=== PATIENT | female | born 1950 | race Caucasian/White ===

== ENCOUNTER → 2020-07-28 | Outpatient (CLI) | payer MEDICARE | LOC: HEART CORB 08:40 | DX: R07.9 Chest pain, unspecified (principal); R06.00 Dyspnea, unspecified; I10 Essential (primary) hypertension; J44.9 Chronic obstructive pulmonary disease, unspecified; I07.9 Rheumatic tricuspid valve disease, unspecified; I07.1 Rheumatic tricuspid insufficiency; I27.20 Pulmonary hypertension, unspecified | CPT/HCPCS: 78452; 93306; A9502; J2785 ==

== ENCOUNTER 2021-11-23 23:23 | Inpatient (IN) | payer MEDICARE ==
[~2021-11-23] VITALS: Ht 165.1 cm; Wt 79.8 kg
[2021-11-24 00:32] LABS: HEMOGLOBIN 12.6 gm/dl (12.3-15.3); RED BLOOD COUNT 4.22 M/UL (4.00-5.10)
[2021-11-24 00:47] LABS: WHITE BLOOD COUNT 39.8 K/UL (4.5-11.0)
[2021-11-24 00:54] LABS: BUN/CREATININE RATIO 28 (0-10)
[2021-11-24 05:22] LABS: BUN/CREATININE RATIO 33 (0-10)
[2021-11-24 08:45] LABS: HEMOGLOBIN 12.3 gm/dl (12.3-15.3); RED BLOOD COUNT 4.14 M/UL (4.00-5.10)
[2021-11-24 08:53] LABS: WHITE BLOOD COUNT 47.6 K/UL (4.5-11.0)
[2021-11-24] MEDS ORDERED: PROAIR HFA8.5 GM INH (10:36)
[2021-11-24] MEDS ORDERED: ONDANSETRON HCL4 MG PO (10:36)
[2021-11-24] MEDS ORDERED: TRELEGY ELLIPT1 EAC1 INH (10:36)
[2021-11-24] MEDS ORDERED: ALBUTEROL2.5 MG/3 M INH (10:36)
[2021-11-24] MEDS ORDERED: BUPROPION HCL75 MG PO (10:37)
[2021-11-24] MEDS ORDERED: ALENDRONATE SOD70 MG PO (10:37)
[2021-11-24] MEDS ORDERED: METOPROLOL SUCC25 MG PO (10:37)
[2021-11-24] MEDS ORDERED: HYDROCHLOROTH12.5 MG PO (10:38)
[2021-11-24] MEDS ORDERED: THEO-24400 MG PO (10:38)
[2021-11-24] MEDS ORDERED: PREDNISONE2.5 MG PO (10:38)
[2021-11-24] MEDS ORDERED: PREVACID30 MG PO (10:50)
[2021-11-24] MEDS ORDERED: CETIRIZINE HCL10 MG PO (10:50)
[2021-11-24] MEDS ORDERED: MONTELUKAST SOD10 MG PO (10:51)
[2021-11-24] MEDS ORDERED: KLONOPIN TAB 00.5 MG PO (14:11)
[2021-11-24] MEDS ORDERED: VITAMIN B COMP1 EAC1 PO (14:12)
[2021-11-24 18:12] LABS: HEMOGLOBIN 10.9 gm/dl (12.3-15.3)
[2021-11-24 18:20] LABS: RED BLOOD COUNT 3.68 M/UL (4.00-5.10); WHITE BLOOD COUNT 39.8 K/UL (4.5-11.0)
[2021-11-25 05:10] LABS: HEMOGLOBIN 10.6 gm/dl (12.3-15.3); RED BLOOD COUNT 3.67 M/UL (4.00-5.10)
[2021-11-25 05:16] LABS: WHITE BLOOD COUNT 37.7 K/UL (4.5-11.0)
[2021-11-26 04:49] LABS: HEMOGLOBIN 11.1 gm/dl (12.3-15.3); RED BLOOD COUNT 3.88 M/UL (4.00-5.10)
[2021-11-26 04:51] LABS: WHITE BLOOD COUNT 45.1 K/UL (4.5-11.0)
[2021-11-27 05:12] LABS: HEMOGLOBIN 10.7 gm/dl (12.3-15.3); RED BLOOD COUNT 3.64 M/UL (4.00-5.10)
[2021-11-27 05:16] LABS: WHITE BLOOD COUNT 33.5 K/UL (4.5-11.0)
[2021-11-28 04:29] LABS: HEMOGLOBIN 9.1 gm/dl (12.3-15.3)
[2021-11-28 04:36] LABS: RED BLOOD COUNT 3.11 M/UL (4.00-5.10); WHITE BLOOD COUNT 21.2 K/UL (4.5-11.0)
[2021-11-29 04:28] LABS: HEMOGLOBIN 8.8 gm/dl (12.3-15.3)
[2021-11-30 11:20] LABS: RED BLOOD COUNT 3.04 M/UL (4.00-5.10)
[2021-11-30 11:23] LABS: WHITE BLOOD COUNT 24.8 K/UL (4.5-11.0)
[2021-12-01 04:53] LABS: HEMOGLOBIN 7.9 gm/dl (12.3-15.3)
[2021-12-01 04:55] LABS: RED BLOOD COUNT 2.64 M/UL (4.00-5.10); WHITE BLOOD COUNT 17.7 K/UL (4.5-11.0)
[2021-12-02 05:13] LABS: HEMOGLOBIN 7.7 gm/dl (12.3-15.3); RED BLOOD COUNT 2.62 M/UL (4.00-5.10); WHITE BLOOD COUNT 18.6 K/UL (4.5-11.0)
[2021-12-03 07:59] LABS: HEMOGLOBIN 8.3 gm/dl (12.3-15.3); RED BLOOD COUNT 2.82 M/UL (4.00-5.10); WHITE BLOOD COUNT 25.4 K/UL (4.5-11.0)
[2021-12-04 05:12] LABS: HEMOGLOBIN 8.2 gm/dl (12.3-15.3); RED BLOOD COUNT 2.78 M/UL (4.00-5.10)
[2021-12-04 05:18] LABS: WHITE BLOOD COUNT 31.2 K/UL (4.5-11.0)
[2021-12-05 04:38] LABS: HEMOGLOBIN 8.2 gm/dl (12.3-15.3); RED BLOOD COUNT 2.82 M/UL (4.00-5.10)
[2021-12-05 05:18] LABS: WHITE BLOOD COUNT 38.5 K/UL (4.5-11.0)
== END 2021-12-06 15:56 | disposition expired | DRG 870 ==
LOC: ER1 23:23 → CCU 11-24 02:44 → CDU 11-24 02:44 → CCU 11-24 04:09
PROVIDERS: Emergency Medicine; Internal Medicine; Internal Medicine Critical Care Medicine; Internal Medicine Nephrology; ADMIT Internal Medicine
PROC: 8E0ZXY6 Isolation (ICD-10-PCS; principal; 2021-11-24)
PROC: XW033E5 Introduction of Remdesivir Anti-infective into Peripheral Vein, Percutaneous Approach, New Technology Group 5 (ICD-10-PCS; 2021-11-24)
PROC: 3E0333Z Introduction of Anti-inflammatory into Peripheral Vein, Percutaneous Approach (ICD-10-PCS; 2021-11-24)
PROC: 3E043XZ Introduction of Vasopressor into Central Vein, Percutaneous Approach (ICD-10-PCS; 2021-11-24)
PROC: 5A12012 Performance of Cardiac Output, Single, Manual (ICD-10-PCS; 2021-11-24)
PROC: 4A03XR1 Measurement of Arterial Saturation, Peripheral, External Approach (ICD-10-PCS; 2021-11-24)
PROC: 5A1955Z Respiratory Ventilation, Greater than 96 Consecutive Hours (ICD-10-PCS; 2021-11-24)
PROC: B24BZZZ Ultrasonography of Heart with Aorta (ICD-10-PCS; 2021-11-24)
PROC: 4A10X4Z Monitoring of Central Nervous Electrical Activity, External Approach (ICD-10-PCS; 2021-11-27)
PROC: 05HN33Z Insertion of Infusion Device into Left Internal Jugular Vein, Percutaneous Approach (ICD-10-PCS; 2021-11-28)
PROC: B544ZZA Ultrasonography of Left Jugular Veins, Guidance (ICD-10-PCS; 2021-11-28)
PROC: 5A09457 Assistance with Respiratory Ventilation, 24-96 Consecutive Hours, Continuous Positive Airway Pressure (ICD-10-PCS; 2021-12-04)
DX: A41.89 Other specified sepsis (principal); G93.41 Metabolic encephalopathy; J18.9 Pneumonia, unspecified organism; U07.1 COVID-19; J96.22 Acute and chronic respiratory failure with hypercapnia; I21.A1 Myocardial infarction type 2; R65.21 Severe sepsis with septic shock; Z66 Do not resuscitate; Z51.5 Encounter for palliative care; Z99.81 Dependence on supplemental oxygen; J15.9 Unspecified bacterial pneumonia; J96.21 Acute and chronic respiratory failure with hypoxia; N17.0 Acute kidney failure with tubular necrosis; G93.1 Anoxic brain damage, not elsewhere classified; S22.43XA Multiple fractures of ribs, bilateral, initial encounter for closed fracture; J44.0 Chronic obstructive pulmonary disease with (acute) lower respiratory infection; E87.1 Hypo-osmolality and hyponatremia; J93.9 Pneumothorax, unspecified; I42.9 Cardiomyopathy, unspecified; F17.200 Nicotine dependence, unspecified, uncomplicated; I48.0 Paroxysmal atrial fibrillation; I46.9 Cardiac arrest, cause unspecified; J98.2 Interstitial emphysema; I11.0 Hypertensive heart disease with heart failure; D63.8 Anemia in other chronic diseases classified elsewhere; Z79.899 Other long term (current) drug therapy; I50.9 Heart failure, unspecified; L89.316 Pressure-induced deep tissue damage of right buttock; N20.0 Calculus of kidney; E87.5 Hyperkalemia; Z98.890 Other specified postprocedural states; Z91.048 Other nonmedicinal substance allergy status; Z79.52 Long term (current) use of systemic steroids
CPT/HCPCS: 31500; 36415; 36600; 70450; 71045; 71250; 80048; 80053; 80198; 80202; 81001; 82140; 82550; 82553; 82570; 82803; 82962; 83540; 83550; 83605; 83735; 83880; 84100; 84133; 84156; 84300; 84484; 85025; 85027; 85610; 85730; 86140; 87040; 87070; 87077; 87081; 87086; 87186; 87205; 92950; 93005; 93308; 94002; 94003; 94640; 94660; 94664; 94760; 95819; 96365; 96366; 96372; 96375; 99285; A6212; C9113; J0171; J0248; J1100; J1205; J1644; J1650; J1940; J1953; J1956; J2185; J2250; J2270; J2370; J2543; J2704; J2765; J2930; J3370; J3475; J3480; J7030; J7040; J7070; P9047; U0002